=== PATIENT | female | born 1960 | race Caucasian/White ===

== ENCOUNTER 2018-05-12 08:56 | Emergency (ER) | payer OTHER ==
[~2018-05-12] VITALS: Ht 180.3 cm; Wt 93.0 kg
--- NOTE | 2018-05-12 09:45 | ED SKIN/ALLERGY COMPLAINT ---
History of Present Illness General Chief Complaint: Skin Rash/ Abcess Stated Complaint: SENT IN BY PMD FOR EVAL OF INFECTION Source: patient Exam Limitations: no limitations Vital Signs & Intake/Output Vital Signs & Intake/Output Vital Signs Date Time Temp Pulse Resp B/P B/P Pulse O2 O2 Flow FiO2 Mean Ox Delivery Rate 05/12 0901 98.6 85 18 115/77 98 Room Air Allergies Coded Allergies: NO KNOWN ALLERGIES (02/07/16) Reconcile Medications Amoxicillin/Potassium Clav (Augmentin 875-125 Tablet) 875 MG-125 MG TABLET 1 TAB PO BID SKIN INFECTION Paroxetine HCl 30 MG TABLET 1 TAB PO DAILY MENTAL HEALTH (Reported) Pravastatin Sodium 20 MG TABLET 1 TAB PO DAILY CHOLESTEROL (Reported) Sulfamethoxazole/Trimethoprim (Sulfamethoxazole-Tmp Ds Tablet) 800 MG-160 MG TABLET 1 TAB PO BID ANTIBIOTIC, INFECTION (Reported) Triage Note: 57 YO FEMALE SENT TO ER BY FOR EVAL OF ? CELLULITIS ON L SIDE OF ABDOMEN. STATES HAS BEEN TAKING BACTRIM BUT AREA IS GETTING WORSE. STATES SITE IS PAINFUL. Triage Nurses Notes Reviewed? yes Onset: Gradual Duration: day(s):, constant, changing over time, continues in ED, getting worse Timing: single episode today Severity: severe Location: left hip/flank HPI: Patient presents for evaluation of a red rash that began gradually about or Friday of last week. Patient states it is a constant itchy red rash that seems to be getting worse. Patient states that she was seen in a walk-in clinic on Friday and began treatment with Bactrim. She then followed up with her primary care physician today who sent her to the emergency department for treatment. Other than fatigue she denies any associated fever or cold symptoms or known injury. She likewise denies tick bites or insect envenomation. Past History Travel History Traveled to [place] past 21 day No Medical History Any Pertinent Medical History? 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 No Review of Systems Review of Systems Constitutional: Reports: no symptoms. EENTM: Reports: no symptoms. Respiratory: Reports: no symptoms. Cardiovascular: Reports: no symptoms. GI: Reports: no symptoms. Genitourinary: Reports: no symptoms. Musculoskeletal: Reports: no symptoms. Skin: Reports: see HPI. Neurological/Psychological: Reports: no symptoms. Hematologic/Endocrine: Reports: no symptoms. Immunologic/Allergic: Reports: no symptoms. All Other Systems: Reviewed and Negative Physical Exam Physical Exam General Appearance: see below Comments: Gen.: Well-nourished, well-developed, no acute respiratory distress. Head: Normocephalic, atraumatic. Eyes: Normal inspection bilaterally Ears: Normal inspection bilaterally Nose: Normal inspection Throat/mouth : Moist mucosa Neck: Supple, full range of motion, no goiter Lungs: Quiet respirations Back: Normal range of motion Extremities: Normal range of motion grossly, no cyanosis clubbing or edema of the upper extremities Neurologic: Cranial nerves grossly intact, speech is clear Skin: warm and dry, area of erythema and mild induration and violaceous discoloration over the left hip and flank, there is a purple outline present likely due to her physician marking the area for assessment of worsening. Psychiatric: Calm, cooperative, no apparent delusions or hallucinations Diagram Body: 1) AREA OF RASH/INFECTION Progress Differential Diagnosis: abscess/cellulitis, allergic reaction, contact dermatitis, shingles, urticaria, lYME DISEASE Plan of Care: Orders Procedure Date/time Status LYME TITRE 05/12 943 Active CBC WITHOUT DIFFERENTIAL 05/12 943 Complete BASIC METABOLIC PANEL 05/12 943 Complete Laboratory Tests 05/12/18 1000: Anion Gap 12, Estimated GFR 46 L, BUN/Creatinine Ratio 11.7, Glucose 102 H, Calcium 9.0, CBC w Diff NO MAN DIFF REQ, RBC 4.58, MCV 87.8, MCH 29.2, MCHC 33.2 , RDW 13.7, MPV 8.0, Gran % 64.2, Lymphocytes % 23.4, Monocytes % 10.9 H, Eosinophils % 0.9, Basophils % 0.6, Absolute Granulocytes 6.3, Absolute Lymphocytes 2.3, Absolute Monocytes 1.1 H, Absolute Eosinophils 0.1, Absolute Basophils 0.1, Lyme Disease Antibody Pending Comments: 05/12/2018 11:33:45 AM I have discussed this patient's emergency department visit with her primary care physician Dr. Corea. She is satisfied with the emergency department evaluation and agrees with enhancement of the patient's antibiotic coverage. She will reevaluate Mitzy in 48 hours. Departure Departure Disposition: HOME OR SELF CARE Condition: Stable Clinical Impression Primary Impression: Cellulitis Qualifiers: Site of cellulitis: trunk Site of cellulitis of trunk: back Qualified Code: L03.312 - Cellulitis of back [any part except buttock] Referrals: Anna IRENE,Henrry Salas (PCP/Family) Additional Instructions: Continue the Bactrim as previously prescribed and add Augmentin. Over-the- counter pain medication as needed. Follow-up with your primary care doctor in 48 hours. Return if any concerns or sudden worsening. Thank you for choosing the [facility] Emergency Department for your care. It was a pleasure to serve you today. Markel Bowie M.D. [facility] Departure Forms: Customer Survey General Discharge Information Prescriptions: Current Visit Scripts Amoxicillin/Potassium Clav (Augmentin 875-125 Tablet) 1 TAB PO BID #20 TAB
[2018-05-12] MEDS ORDERED: PRAVASTATIN SOD20 M2 PO (10:12)
[2018-05-12] MEDS ORDERED: SULFAMETHOXAZO1 EAC1 PO (10:13)
[2018-05-12] MEDS ORDERED: PAROXETINE HCL30 M1 PO (10:13)
[2018-05-12 10:23] LABS: ABSOLUTE BASOPHIL COUNT 0.1 /CUMM (0.0-0.2); ABSOLUTE EOSINOPHIL COUNT 0.1 /CUMM (0.0-0.7); ABSOLUTE GRANULOCYTE CT 6.3 /CUMM (1.4-6.5); ABSOLUTE LYMPH COUNT 2.3 /CUMM (1.2-3.4); ABSOLUTE MONOCYTE COUNT 1.1 /CUMM (0.10-0.60); BASOPHIL % 0.6 % (0.0-2.0); EOSINOPHIL % 0.9 % (0-5); GRANULOCYTE % 64.2 % (42.2-75.2); HEMATOCRIT 40.2 % (37-47); MEAN CORPUSCULAR HGB 29.2 PG (27.0-31.0); MEAN CORPUSCULAR HGB CONC 33.2 G/DL (33.0-37.0); MEAN CORPUSCULAR VOLUME 87.8 FL (81.0-99.0); PLATELET COUNT 278 /CUMM (130-400); RBC DISTRIBUTION WIDTH 13.7 % (11.5-14.5); RED BLOOD CELL CT 4.58 /CUMM (4.20-5.40); WHITE BLOOD CELL COUNT 9.9 /CUMM (4.8-10.8)
[2018-05-12] MEDS ORDERED: AUGMENTIN 875-1 EACH PO (11:48)
[2018-05-12 11:49] VITALS: BP 133/78
== END 2018-05-12 11:58 ==
LOC: ERH 08:56
PROVIDERS: Emergency Medicine
DX: L03.311 Cellulitis of abdominal wall (principal)
CPT/HCPCS: 86618; 96365

== ENCOUNTER 2018-05-12 18:01 | Inpatient (IN) | payer OTHER ==
[~2018-05-12] VITALS: Ht 180.3 cm; Wt 92.3 kg
[~2018-05-12 18:01] MED LIST: AUGMENTIN 875-1 EACH PO; PAROXETINE HCL30 M1 PO; PRAVASTATIN SOD20 M2 PO; SULFAMETHOXAZO1 EAC1 PO
--- NOTE | 2018-05-12 18:37 | ED SKIN/ALLERGY COMPLAINT ---
History of Present Illness General Chief Complaint: General Adult Stated Complaint: SEEN HERE THIS AM FOR CELLULITIS Source: patient, old records Exam Limitations: no limitations Vital Signs & Intake/Output Vital Signs & Intake/Output Vital Signs Date Time Temp Pulse Resp B/P B/P Pulse O2 O2 Flow FiO2 Mean Ox Delivery Rate 05/12 1959 100.8 05/12 1911 100.8 78 18 102/56 96 Room Air 05/12 1856 102.0 05/12 1845 97 Room Air 05/12 1813 102.8 87 18 108/71 96 Room Air Allergies Coded Allergies: NO KNOWN ALLERGIES (02/07/16) Reconcile Medications Amoxicillin/Potassium Clav (Augmentin 875-125 Tablet) 875 MG-125 MG TABLET 1 TAB PO BID SKIN INFECTION Paroxetine HCl 30 MG TABLET 1 TAB PO DAILY MENTAL HEALTH (Reported) Pravastatin Sodium 20 MG TABLET 1 TAB PO DAILY CHOLESTEROL (Reported) Sulfamethoxazole/Trimethoprim (Sulfamethoxazole-Tmp Ds Tablet) 800 MG-160 MG TABLET 1 TAB PO BID ANTIBIOTIC, INFECTION (Reported) Triage Note: PT STATES SHE WAS HERE THIS AM AND SEEN FOR CELLULITIS ON HER LEFT SIDE. PT WAS TOLD TO COME BACK IF WORSE. PT STATES SHE IS VOMITING NOW AND HAS FEVER AND VOMITING. Triage Nurses Notes Reviewed? yes HPI: Patient presents for evaluation of a constant and worsening left flank rash that began a number of days ago. The rash persists despite taking Bactrim over the past 2 days. Patient was seen earlier in the [facility] emergency Department and was given a dose of Unasyn and provided a prescription for Augmentin to take along with the Bactrim. While at home the patient states she began to feel considerably worse and spiked a fever with chills. She returns for reevaluation. (Azeb IRENE,Markel Skinner) Past History Travel History Traveled to [place] past 21 day No Medical History Any Pertinent Medical History? 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 No (Azeb IRENE,Markel Skinner) Review of Systems Review of Systems Constitutional: Reports: chills. EENTM: Reports: no symptoms. Respiratory: Reports: no symptoms. Cardiovascular: Reports: no symptoms. GI: Reports: no symptoms. Genitourinary: Reports: no symptoms. Musculoskeletal: Reports: no symptoms. Skin: Reports: see HPI. Neurological/Psychological: Reports: no symptoms. Hematologic/Endocrine: Reports: no symptoms. Immunologic/Allergic: Reports: no symptoms. All Other Systems: Reviewed and Negative (Azeb IRENE,Markel Skinner) Physical Exam Physical Exam General Appearance: SEE BELOW Comments: Gen.: Well-nourished, well-developed, no acute respiratory distress. Head: Normocephalic, atraumatic. Eyes: Normal inspection bilaterally Ears: Normal inspection bilaterally Nose: Normal inspection Throat/mouth : Moist mucosa Neck: Supple, full range of motion, no goiter Lungs: Quiet respirations Back: Normal range of motion Extremities: Normal range of motion grossly, no cyanosis clubbing or edema of the upper extremities Neurologic: Cranial nerves grossly intact, speech is clear Skin: warm and dry, papular rash over the left flank with mild induration and tenderness, no fluctuance present. Psychiatric: Calm, cooperative, no apparent delusions or hallucinations (Azeb IRENE,Markel Skinner) Progress Differential Diagnosis: abscess/cellulitis, lyme disease Plan of Care: Orders Procedure Date/time Status Heart Healthy Diet 05/13 B Active LACTIC ACID 05/12 2112 Active ED Holding Orders 05/12 1954 Active Admit to inpatient 05/12 1954 Active Vital Signs 05/12 1954 Active Code Status 05/12 1954 Active TROPONIN LEVEL 05/12 1813 Complete COMPREHENSIVE METABOLIC PANEL 05/12 1813 Complete EKG 05/12 1813 Active BLOOD CULTURE 05/12 1812 Active LACTIC ACID 05/12 1812 Complete CBC WITHOUT DIFFERENTIAL 05/12 1812 Complete Current Medications Sig/Job Start time Last Medication Dose Stop Time Status Admin Sodium Chloride 1,000 ML BOLUS ONE 05/12 1845 AC 05/12 (Normal Saline 0.9%) 05/12 Trimethoprim/ 10 ML ONCE ONE 05/12 1845 CAN Sulfamethoxazole 05/12 1846 (Bactrim) Trimethoprim/ 10 ML ONCE ONE 05/12 1845 AC 05/12 Sulfamethoxazole 05/12 (Bactrim) Sodium Chloride 250 ML (Normal Saline 0.9%) Laboratory Tests 05/12/181830: Lactic Acid 1.0 05/12/181830: Anion Gap 11, Estimated GFR 46 L, BUN/Creatinine Ratio 12.5, Glucose 108 H, Calcium 8.8, Total Bilirubin 0.9, AST 20, ALT 39, Alkaline Phosphatase 69, Troponin I < 0.01, Total Protein 7.0, Albumin 3.8, Globulin 3.2, Albumin/ Globulin Ratio 1.2, CBC w Diff NO MAN DIFF REQ, RBC 4.34, MCV 87.9, MCH 29.6, MCHC 33.7, RDW 13.7, MPV 7.9, Gran % 62.3, Lymphocytes % 23.5, Monocytes % 12.2 H, Eosinophils % 1.1, Basophils % 0.9, Absolute Granulocytes 5.5, Absolute Lymphocytes 2.1, Absolute Monocytes 1.1 H, Absolute Eosinophils 0.1, Absolute Basophils 0.1 Microbiology 05/12 1840 BLOOD: Blood Culture - RECD 05/12 1831 BLOOD: Blood Culture - RECD Comments: 05/12/2018 7:10:59 PM patient 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 (Azeb IRENE,Markel Skinner) Departure Departure Disposition: STILL A PATIENT Condition: Stable Clinical Impression Primary Impression: Cellulitis Referrals: Anna IRENE,Henrry Salas (PCP/Family) Departure Forms: Customer Survey General Discharge Information (Azeb IRENE,Markel Skinner) Admission Note Spoke With: Jolene Sarabia MD Documentation of Exam: Documentation of any treatments & extenuating circumstances including Concerns Regarding Discharge (functional status, medication knowledge or non-compliance, living conditions, etc.) that warrant an admission rather than observation: [ Admit for IV antibiotics, IV fluids, follow-up cultures. Patient has been on Bactrim for the past 2 days and then received a dose of Unasyn earlier today in the emergency Department however she still spiked a fever to 102.8.] (Chandrika IRENE,Stefan Youngblood)
[2018-05-12 18:43] LABS: ABSOLUTE BASOPHIL COUNT 0.1 /CUMM (0.0-0.2); ABSOLUTE EOSINOPHIL COUNT 0.1 /CUMM (0.0-0.7); ABSOLUTE GRANULOCYTE CT 5.5 /CUMM (1.4-6.5); ABSOLUTE LYMPH COUNT 2.1 /CUMM (1.2-3.4); ABSOLUTE MONOCYTE COUNT 1.1 /CUMM (0.10-0.60); BASOPHIL % 0.9 % (0.0-2.0); EOSINOPHIL % 1.1 % (0-5); GRANULOCYTE % 62.3 % (42.2-75.2); HEMATOCRIT 38.2 % (37-47); MEAN CORPUSCULAR HGB 29.6 PG (27.0-31.0); MEAN CORPUSCULAR HGB CONC 33.7 G/DL (33.0-37.0); MEAN CORPUSCULAR VOLUME 87.9 FL (81.0-99.0); MEAN PLATELET VOLUME 7.9 FL (7.4-10.4); PLATELET COUNT 263 /CUMM (130-400); RBC DISTRIBUTION WIDTH 13.7 % (11.5-14.5); RED BLOOD CELL CT 4.34 /CUMM (4.20-5.40); WHITE BLOOD CELL COUNT 8.9 /CUMM (4.8-10.8)
--- NOTE | 2018-05-12 20:15 | History & Physical ---
Stefan Terrell MD 05/12/18 2015: General Information and HPI MD Statement: I have seen and personally examined DINORAH ROSADO and documented this H& P. The patient is a 57 year old F who presented with a patient stated chief complaint of [fever, chills]. Source of Information: patient, family Exam Limitations: no limitations History of Present Illness: Patient is a 57-year-old female with a PMH significant for hyperlipidemia, anxiety, diet-controlled diabetes mellitus type 2, EL on nocturnal CPAP although admits to noncompliance, who presents complaining of a rash on her left flank, fever, chills. Approximately 4-5 days prior to presentation patient reported onset of erythematous patch on her left flank which started a relatively small through over several days and became tender and warm to the touch. She presented to urgent care 2 days prior to admission and was started on Bactrim. She then went to the ED the morning prior to admission she was given 1 dose of IV Unasyn and Augmentin was added to her antibiotic regimen and she was sent home. She then returned to the ED after she was having severe fever and chills. She endorses fatigue and nausea but no vomiting over the last several days but denies any weakness or muscle aches. She has been compliant with her antibiotics for the past 2 days. She does not recall any insect bite at the site of the rash and has been spending time outside in her garden but not in any wooded areas. She denies any chest pain, shortness of breath, palpitations. Allergies/Medications Allergies: Coded Allergies: NO KNOWN ALLERGIES (02/07/16) Home Med list Amoxicillin/Potassium Clav (Augmentin 875-125 Tablet) 875 MG-125 MG TABLET 1 TAB PO BID SKIN INFECTION Paroxetine HCl 30 MG TABLET 1 TAB PO DAILY MENTAL HEALTH (Reported) Pravastatin Sodium 20 MG TABLET 1 TAB PO DAILY CHOLESTEROL (Reported) Sulfamethoxazole/Trimethoprim (Sulfamethoxazole-Tmp Ds Tablet) 800 MG-160 MG TABLET 1 TAB PO BID ANTIBIOTIC, INFECTION (Reported) Past History Travel History Traveled to [place] past 21 day No Medical History Neurological: NONE EENT: NONE Cardiovascular: hyperlipidemia, syncope Respiratory: NONE Gastrointestinal: NONE Hepatic: NONE Renal: NONE Musculoskeletal: NONE Psychiatric: ANXITEY PANIC ATTACKS Endocrine: DM Blood Disorders: NONE 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 MOTHER FH: atrial fibrillation, Onset: 60+. Psychosocial History Where do you live? Home Primary Language: Polish Smoking Status: Current Everyday Smoker ETOH Use: denies use Illicit Drug Use: denies illicit drug use Living Will? no Functional Ability ADLs Independent: dressing, eating, toileting, bathing. Ambulation: independent IADLs Independent: shopping, housework, finances, food prep, telephone, transportation , medication admin. Review of Systems Review of Systems Constitutional: Reports: see HPI, chills, fever. Denies: weakness. EENTM: Denies: blurred vision, double vision, visual changes. Cardiovascular: Denies: chest pain, palpitations, syncope. Respiratory: Denies: cough, hemoptysis, short of breath, sputum production. GI: Denies: abdominal pain, bloating, constipation, melena, nausea, bloody stool. Genitourinary: Denies: dysuria, frequency, nocturia. Musculoskeletal: Reports: see HPI. Skin: Reports: rash. Neurological/Psychological: Reports: no symptoms. Hematologic/Endocrine: Reports: no symptoms. Exam & Diagnostic Data Last 24 Hrs of Vital Signs/I&O Vital Signs Date Time Temp Pulse Resp B/P B/P Pulse O2 O2 Flow FiO2 Mean Ox Delivery Rate 05/120 97.6 66 17 114/64 97 Room Air 05/12 2057 98.9 82 20 106/62 95 05/12 1959 100.8 05/12 191 100.8 78 18 102/56 96 Room Air 05/12 1856 102.0 05/12 1845 97 Room Air 05/12 181 102.8 87 18 108/71 96 Room Air Physical Exam General Appearance Alert, Oriented X3, Cooperative, No Acute Distress Skin dusky erythmatous patch on the L flank with distinct boarders showing some regression from the dixon demarcating the peripheral edge in the ED, mildly tender to palpation., small hyperpigmented papules under the R breast Skin Temp/Moisture Exam: Warm/Dry Sepsis Skin Exam (color): Normal for Ethnicity, Cyanotic, Flushed, Jaundiced HEENT Atraumatic, PERRLA, EOMI, Mucous Membr. moist/pink Cardiovascular Regular Rate, Normal S1, Normal S2, No Murmurs Lungs Clear to Auscultation, Normal Air Movement Abdomen Normal Bowel Sounds, Soft, No Tenderness Neurological Normal Speech, Strength at 5/5 X4 Ext, Normal Tone, Sensation Intact, Cranial Nerves 3-12 NL Extremities No Clubbing, No Cyanosis, No Edema Last 24 Hrs of Labs/Carter: Laboratory Tests 05/12/182052: Lactic Acid 0.9 05/12/181830: Lactic Acid 1.0 05/12/181830: Anion Gap 11, Estimated GFR 46 L, BUN/Creatinine Ratio 12.5, Glucose 108 H, Calcium 8.8, Total Bilirubin 0.9, AST 20, ALT 39, Alkaline Phosphatase 69, Troponin I < 0.01, Total Protein 7.0, Albumin 3.8, Globulin 3.2, Albumin/ Globulin Ratio 1.2, CBC w Diff NO MAN DIFF REQ, RBC 4.34, MCV 87.9, MCH 29.6, MCHC 33.7, RDW 13.7, MPV 7.9, Gran % 62.3, Lymphocytes % 23.5, Monocytes % 12.2 H, Eosinophils % 1.1, Basophils % 0.9, Absolute Granulocytes 5.5, Absolute Lymphocytes 2.1, Absolute Monocytes 1.1 H, Absolute Eosinophils 0.1, Absolute Basophils 0.1 Microbiology 05/12 1840 BLOOD: Blood Culture - RECD 05/12 1831 BLOOD: Blood Culture - RECD Diagnostic Data EKG Results Sinus rhythm HR 79 QTc 432 Assessment/Plan Assessment: Patient is a 57-year-old female with a PMH significant for hyperlipidemia, anxiety, diet-controlled diabetes mellitus type 2, EL on nocturnal CPAP although admits to noncompliance, who presents complaining of a rash on her left flank, fever, chills. She was started on Bactrim 2 days prior to presentation by urgent care and failed outpatient therapy, she was seen in the ED the morning of admission and was given a dose of Unasyn Augmentin added to her regimen, however she had severe fever and chills after being sent home from the ED and return to the ED. she has no history of being outside in a wooded area but has spent a significant amount of time outside in her garden, she does not recall any tick bites. Erythematous patch on her left flank consistent with erythema migrans Vital signs on presentation: T max 102.8, P 87, RR 18, BP 108/71, pulse ox 96% on room air Labs: WBC 8.9, H/H 12.9/38.2, platelets 263, sodium 136, potassium 4.3, chloride 102, CO2 24, creatinine 1.2, glucose 108, lactic acid 1.0, troponin < 0.01, Lyme titer 1.17 Problem list #Lyme disease with erythema migrans #Chronic medical problems including anxiety, diet-controlled DM, HLD Plan -Admit to general medicine -Start doxycycline -Tick panel -Follow-up peripheral smear -Follow-up labs in a.m. -ID consult to be placed in a.m. -Continue home medications including statin, paroxetine -Smoking cessation counseling Diet: Diabetic diet DVT prophylaxis: Subcutaneous heparin, Alps CODE STATUS: Full code As Ranked By This Provider Problem List: 1. Lyme disease Core Measures/Misc (08/10) Acute Coronary Syndrome ACS Diagnosis: No Congestive Heart Failure Congestive Heart Failure Diagnosis No Cerebrovascular Accident CVA/TIA Diagnosis: No VTE (View Protocol) VTE Risk Factors Age>40 No Mechanical VTE Prophylaxis d/t N/A MechProphylax Ordered No VTE Pharm Prophylaxis d/t NA PharmProphylax ordered Sepsis (View protocol) Sepsis Present: No If YES complete Sepsis Event Note If YES complete Sepsis Event Note Jyoti Graves 05/12/18 4277: Core Measures/Misc (08/10) Sepsis (View protocol) If YES complete Sepsis Event Note If YES complete Sepsis Event Note Resident Review Statement Resident Statement: examined this patient, discussed with internet manager, agreed with internet manager Other Findings: 57 year old woman current smoker, with pmh significant for Impaired glucose intolerance, anxiety, hyperlipidemia here for evaluation of erthyematous rash of 4-5 days duration. She went to urgent care 2 days prior to admission and was started on Bactrim with no improvement in symptoms. Endorsed severe weakness and myalagia. Also endorsed recent difficultly with swallowing. Family has noticed that she sometimes chokes when eating. Denied recent tick bites however did work in garden recently. In ED she was found to febrile to 102.8, Examination pertinent for erthymatous, sharply demarcated patch on left flank and expiratory wheeze on lung exam. EKG: sinus rhythm, nonspecific T-wave changes, Qtc 432. assessement plan: Meets criteria for SIRS, will admit to general medicine early localized lyme VS cellulitis Rash consistent with Erythema migrans seen in early localized lyme Received IV Unasyn and IV Bactrim in the ER to cover for cellulitis Lyme antibody titer is positive (1.17), will Start doxycycline Follow-up tick panel and PS ID consult to be placed in a.m. Continue home medications including statin, paroxetine TRC/nebs, nocturnal CPAP follow up swallow eval. Diet: Diabetic diet DVT prophylaxis: Subcutaneous heparin, Alps CODE STATUS: Full code Cornell IRENE, [facility] 05/13/18 0220: Core Measures/Misc (08/10) Sepsis (View protocol) If YES complete Sepsis Event Note If YES complete Sepsis Event Note Attending MD Review Statement Attending Statement Attending MD Statement: examined this patient, discuss w/resident/PA/FIXTURE MAKER, agreed w/resident/PA/FIXTURE MAKER, discussed with family, reviewed images, amended to note Attending Assessment/Plan: 57 yo F smoker, with h/o restless leg syndrome, anxiety, HLD, diet-controlled diabetes, CKD stage 3, EL noncompliant with CPAP, is here for evaluation of erythematous rash to her left abdomen. About 6 days ago, patient reports developing what she thought was a 'heat rash' associated with tenderness/ pain. She went to an Urgent Care and was started on Bactrim 3 days ago which she has been compliant with. She came to the ER early this morning, was given a dose of IV Unasyn and then discharged on Augmentin to be taken with the Bactrim. However , when she reached home, she had a fever of 102 and hence she returned to the ER. She reports chills, fatigue and feeling of generalized weakness/ tiredness. Patient reports doing garden work but does not recall any tick or insect bites. Vitals: Tmax 102.8, HR 66-82, BP 114/64, sats 97% RA. Exam: AAO, in no distress, left flank region diffuse uniform erythematous rash, blanchable, warm to touch. Labs: Creat 1.2 (baseline 1.0-1.1), lactic acid normal, trop neg. EKG: sinus rhythm, nonspecific T-wave changes, Qtc 432. Patient received IV Unasyn and IV Bactrim in the ER to cover for cellulitis. Assessment and plan: 1. SIRS 2. Diffuse uniform erythematous rash concerning for erythema migrans, Lyme disease 3. Possibly overlying cellulitis 4. History of diet controlled diabetes 5. CKD stable - Admit to General medicine - Panculture - Assess for tick borne illnesses - Peripheral smear - Lyme antibody titer is positive (1.17) - Initiate IV Doxycycline - Obtain ID consult in AM - Please check CK, CRP - Gentle hydration - Tylenol as needed for fever - Smoking cessation counseling, nicotine patch - Resume home meds DVT ppx Hep SC. Full code.
[2018-05-12 22:00] VITALS: BP 114/64
--- NOTE | 2018-05-13 03:23 | Admission Certification ---
Admission Certification Certification Statement - As attending physician, I certify that at the time of - admission, based on clinical presentation, severity of - symptoms, need for further diagnostic testing and - therapeutic interventions, and risk of adverse outcomes - without in-hospital treatment, in my clinical assessment, - this patient requires an acute hospital stay for a minimum - of two nights or longer. I have also considered psychsocial - factors such as support system, advanced age, financial - issues, cognitive issues, and failed out-patient treatments, - past re-admission history, safety of patient, and lack of - compliance as applicable. Specific rationale supporting this admission is: Left flank rash ?erythema migrans vs cellulitis, failed outpatient treatment.
[2018-05-13 06:17] VITALS: BP 122/74
--- NOTE | 2018-05-13 07:13 | PN- Housestaff ---
Subjective Follow-up For: Rash on left flank region Subjective: Patient reports fatigue. Says she noticed the rash on friday and has been increasing in size since then despite taking the Abx. Also the area was more induarated before now has been more softer now. Review of Systems Constitutional: Reports: fever, malaise. EENTM: Reports: no symptoms. Cardiovascular: Reports: no symptoms. Respiratory: Reports: no symptoms. Gastrointestinal: Reports: no symptoms. Genitourinary: Reports: no symptoms. Musculoskeletal: Reports: no symptoms. Skin: Reports: rash. Neurological/Psychological: Reports: no symptoms. Hematologic/Endocrine: Reports: no symptoms. Immunologic/Allergic: Reports: no symptoms. Objective Last 24 Hrs of Vital Signs/I&O Vital Signs Date Time Temp Pulse Resp B/P B/P Pulse O2 O2 Flow FiO2 Mean Ox Delivery Rate 05/13 1404 98.1 67 16 116/70 98 Room Air 05/13 1034 Room Air 05/13 0617 98.9 69 20 122/74 98 Room Air 05/12 2200 97.6 66 17 114/64 97 Room Air 05/127 98.9 82 20 106/62 95 05/12 1959 100.8 05/12 1911 100.8 78 18 102/56 96 Room Air 05/12 1856 102.0 05/12 1845 97 Room Air 05/12 1813 102.8 87 18 108/71 96 Room Air Intake & Output 05/13 1600 05/13 0800 05/13 0000 Intake Total 4951 186 1611 Output Total Balance 0980 138 8123 Intake, IV 0 100 1000 Intake, Oral 1900 Number 0 Bowel Movements Patient 203 lb Weight Weight Bed scale Measurement Method Physical Exam General Appearance: Alert, Oriented X3, Cooperative, No Acute Distress Skin: No Breakdown, erythematous rash on left flank area, tender and warm to touch Cardiovascular: Regular Rate, Normal S1, Normal S2 Lungs: Clear to Auscultation, Normal Air Movement Abdomen: Normal Bowel Sounds, Soft, No Tenderness Extremities: No Clubbing, No Cyanosis, No Edema Current Medications: Current Medications Sig/Job Start time Last Medication Dose Route Stop Time Status Admin Acetaminophen 0 .STK-MED ONE 05/12 1849 DC IV Acetaminophen 1,000 MG ONCE ONE 05/12 1845 DC 05/12 N/A 1 UNIT IV 05/12 Ampicillin Sodium/ 0 .STK-MED ONE 05/12 184 DC Sulbactam Sodium .ROUTE Ampicillin Sodium/ 3,000 MG ONCE ONE 05/12 184 DC 05/12 Sulbactam Sodium IV 05/12 1914 1914 Sodium Chloride 100 ML Doxycycline Hyclate 100 MG DAILY 05/13 0245 AC 05/13 Sodium Chloride 100 ML IV 0324 Enoxaparin Sodium 40 MG DAILY 05/13 1330 AC 05/13 SC 1448 Nicotine 14 MG DAILY 05/14 0900 UNVr TOP Nicotine 7 MG DAILY 05/13 0900 DC TOP Paroxetine HCl 30 MG AT BEDTIME 05/13 2100 DC PO Paroxetine HCl 30 MG DAILY 05/13 1027 AC 05/13 PO 1210 Patient Medication 1 ED ONE ONE 05/13 1230 DC Teaching ED 05/13 1231 Pravastatin Sodium 20 MG DAILY 05/13 0900 AC 05/13 PO 0840 Sodium Chloride 1,000 ML BOLUS ONE 05/12 184 DC 05/12 IV 05/12 2044 184 Trimethoprim/ 10 ML ONCE ONE 05/12 184 CAN Sulfamethoxazole IV 05/12 184 Trimethoprim/ 10 ML ONCE ONE 05/12 184 DC 05/12 Sulfamethoxazole IV 05/12 Sodium Chloride 250 ML Last 24 Hrs of Lab/Carter Results Last 24 Hrs of Labs/Mics: Laboratory Tests 05/13/18 0700: Anion Gap 8, Estimated GFR 57 L, BUN/Creatinine Ratio 11.0, CBC w Diff MAN DIFF ORDERED, RBC 4.08 L, MCV 88.2, MCH 29.9, MCHC 33.9, RDW 13.6, MPV 9.4, Segmented Neutrophils 65, Lymphocytes 23, Monocytes 9, Eosinophils 3, Platelet Estimate , Normocytic RBCs VERIFIED, Normochromic RBCs VERIFIED 05/12/182052: Lactic Acid 0.9 05/12/181830: Lactic Acid 1.0 05/12/181830: Anion Gap 11, Estimated GFR 46 L, BUN/Creatinine Ratio 12.5, Glucose 108 H, Calcium 8.8, Total Bilirubin 0.9, AST 20, ALT 39, Alkaline Phosphatase 69, Creatine Kinase 63, Troponin I < 0.01, Total Protein 7.0, Albumin 3.8, Globulin 3.2, Albumin/Globulin Ratio 1.2, CBC w Diff NO MAN DIFF REQ, RBC 4.34, MCV 87.9, MCH 29.6, MCHC 33.7, RDW 13.7, MPV 7.9, Gran % 62.3, Lymphocytes % 23.5, Monocytes % 12.2 H, Eosinophils % 1.1, Basophils % 0.9, Absolute Granulocytes 5.5, Absolute Lymphocytes 2.1, Absolute Monocytes 1.1 H, Absolute Eosinophils 0.1, Absolute Basophils 0.1 Microbiology 05/12 1840 BLOOD: Blood Culture - RES 05/12 1831 BLOOD: Blood Culture - RES Assessment/Plan Assessment: Patient is a 57-year-old female with a PMH significant for hyperlipidemia, anxiety, diet-controlled diabetes mellitus type 2, EL on nocturnal CPAP although admits to noncompliance, who presents complaining of a rash on her left flank, fever, chills. She was started on Bactrim 2 days prior to presentation by urgent care and failed outpatient therapy, she was seen in the ED the morning of admission and was given a dose of Unasyn Augmentin added to her regimen, however she had severe fever and chills after being sent home from the ED and return to the ED. she has no history of being outside in a wooded area but has spent a significant amount of time outside in her garden, she does not recall any tick bites. Problem list #Rash on left flank region; ?? lyme disease with superimposed cellulitis #Chronic medical problems including anxiety, diet-controlled DM, HLD Plan - Admit to general medicine - Lyme Ab positive, Confirm with western blot. - Continue doxycycline - Tick panel pending - Follow-up peripheral smear - Will obtain US of the area to r/o any abscess - Follow-up labs in a.m. - ID consult to be placed if patient continues to spike fever or rash worsens. - Cr back to baseline. - Continue home medications including statin, paroxetine - Nicotine patch 14mg daily Diet: Diabetic diet DVT prophylaxis: Subcutaneous heparin, Alps CODE STATUS: Full code Problem List: 1. Cellulitis 2. Lyme disease Pain Ratin Pain Location: NA Pain Goal: Remain pain free Pain Plan: Pain Pathway Tomorrow's Labs & Rationales: None
[2018-05-13 08:06] LABS: RED BLOOD CELL CT 4.08 /CUMM (4.20-5.40)
[2018-05-13 08:14] LABS: MEAN CORPUSCULAR HGB 29.9 PG (27.0-31.0); MEAN CORPUSCULAR HGB CONC 33.9 G/DL (33.0-37.0); MEAN CORPUSCULAR VOLUME 88.2 FL (81.0-99.0); MEAN PLATELET VOLUME 9.4 FL (7.4-10.4); PLATELET COUNT 175 /CUMM (130-400); RBC DISTRIBUTION WIDTH 13.6 % (11.5-14.5); WHITE BLOOD CELL COUNT 9.1 /CUMM (4.8-10.8)
--- NOTE | 2018-05-13 13:17 | PN- Att Addend ---
Attending Addendum Attending Brief Note Patient seen and examined, currently afebrile. The rash looks the same. Patient does not have any leukocytosis. She is admitted with cellulitis failing outpatient treatment. Vital Signs Date Time Temp Pulse Resp B/P B/P Pulse O2 O2 Flow FiO2 Mean Ox Delivery Rate 05/13 1034 Room Air 05/13 617 98.9 69 20 122/74 98 Room Air 05/12 2200 97.6 66 17 114/64 97 Room Air 05/12 2057 98.9 82 20 106/62 95 05/12 1959 100.8 05/12 191 100.8 78 18 102/56 96 Room Air 05/12 1856 102.0 05/12 1845 97 Room Air 05/12 181 102.8 87 18 108/71 96 Room Air on exam; aox3, nad. cv; s1, s2, rrr resp; clear abd; soft, nt, bs+ ext; no edema skin: Large area of erythema and induration on the left flank/buttock area. Laboratory Tests 05/13 05/12 05/12 0700 2052 183 Chemistry Sodium (137 - 145 mmol/L) 139 Potassium (3.5 - 5.1 mmol/L) 4.3 Chloride (98 - 107 mmol/L) 108 H Carbon Dioxide (22 - 30 mmol/L) 23 Anion Gap (5 - 16) 8 BUN (7 - 17 mg/dL) 11 Creatinine (0.5 - 1.0 mg/dL) 1.0 Estimated GFR (>60 ml/min) 57 L BUN/Creatinine Ratio (7 - 25 %) 11.0 Lactic Acid (0.7 - 2.1 mmol/L) 0.9 1.0 Hematology CBC w Diff MAN DIFF ORDERED WBC (4.8 - 10.8 /CUMM) 9.1 RBC (4.20 - 5.40 /CUMM) 4.08 L Hgb (12.0 - 16.0 G/DL) 12.2 Hct (37 - 47 %) 36.0 L MCV (81.0 - 99.0 FL) 88.2 MCH (27.0 - 31.0 PG) 29.9 MCHC (33.0 - 37.0 G/DL) 33.9 RDW (11.5 - 14.5 %) 13.6 Plt Count (130 - 400 /CUMM) 175 MPV (7.4 - 10.4 FL) 9.4 Segmented Neutrophils (42.2 - 75.2 %) 65 Lymphocytes (20.5 - 51.1 %) 23 Monocytes (1.7 - 9.3 %) 9 Eosinophils (0 - 5.0 %) 3 Platelet Estimate (ADEQUATE) Normocytic RBCs VERIFIED Normochromic RBCs VERIFIED 05/12 1831 Chemistry Sodium (137 - 145 mmol/L) 136 L Potassium (3.5 - 5.1 mmol/L) 4.3 Chloride (98 - 107 mmol/L) 102 Carbon Dioxide (22 - 30 mmol/L) 24 Anion Gap (5 - 16) 11 BUN (7 - 17 mg/dL) 15 Creatinine (0.5 - 1.0 mg/dL) 1.2 H Estimated GFR (>60 ml/min) 46 L BUN/Creatinine Ratio (7 - 25 %) 12.5 Glucose (65 - 99 mg/dL) 108 H Calcium (8.4 - 10.2 mg/dL) 8.8 Total Bilirubin (0.2 - 1.3 mg/dL) 0.9 AST (14 - 36 U/L) 20 ALT (9 - 52 U/L) 39 Alkaline Phosphatase (<127 U/L) 69 Creatine Kinase (30 - 135 U/L) 63 Troponin I (< 0.11 ng/ml) < 0.01 Total Protein (6.3 - 8.2 g/dL) 7.0 Albumin (3.5 - 5.0 g/dL) 3.8 Globulin (1.9 - 4.2 gm/dL) 3.2 Albumin/Globulin Ratio (1.1 - 2.2 %) 1.2 Hematology CBC w Diff NO MAN DIFF REQ WBC (4.8 - 10.8 /CUMM) 8.9 RBC (4.20 - 5.40 /CUMM) 4.34 Hgb (12.0 - 16.0 G/DL) 12.9 Hct (37 - 47 %) 38.2 MCV (81.0 - 99.0 FL) 87.9 MCH (27.0 - 31.0 PG) 29.6 MCHC (33.0 - 37.0 G/DL) 33.7 RDW (11.5 - 14.5 %) 13.7 Plt Count (130 - 400 /CUMM) 263 MPV (7.4 - 10.4 FL) 7.9 Gran % (42.2 - 75.2 %) 62.3 Lymphocytes % (20.5 - 51.1 %) 23.5 Monocytes % (1.7 - 9.3 %) 12.2 H Eosinophils % (0 - 5 %) 1.1 Basophils % (0.0 - 2.0 %) 0.9 Absolute Granulocytes (1.4 - 6.5 /CUMM) 5.5 Absolute Lymphocytes (1.2 - 3.4 /CUMM) 2.1 Absolute Monocytes (0.10 - 0.60 /CUMM) 1.1 H Absolute Eosinophils (0.0 - 0.7 /CUMM) 0.1 Absolute Basophils (0.0 - 0.2 /CUMM) 0.1 A/P; 57-year-old female with past medical history significant for anxiety, hyperlipidemia, diet-controlled diabetes, EL who is admitted with cellulitis failing outpatient treatment. There was a question of possible Lyme with a rash of erythema migraines. This particular rash does not seem like to be erythema migraines. On blood work patient does not have any leukopenia. She was febrile to 102F last night but currently afebrile. She was started on IV doxycycline. Lyme antibody is positive. We'll do the Western blot. Doubt that this is Lyme. This likely is a cellulitis failed outpatient treatment. Will obtain ultrasound of that area to rule out any abscess. We'll continue the current antibiotics and follow-up on cultures. If patient becomes febrile or clinically gets worse and would consider getting ID consultation. Please add Accu-Cheks. Please add pharmacologic DVT prophylaxis. Discussed with her sister at bedside.
[2018-05-13 14:04] VITALS: BP 116/70
--- NOTE | 2018-05-13 18:56 | ULTRASOUND REPORT ---
EXAMINATION: US SUPERFICIAL IMAGING, EXTREMITY CLINICAL INFORMATION: Rash/cellulitis of left upper thigh and flank region. Evaluate for abscess. COMPARISON: None TECHNIQUE: Sonographic imaging of subcutaneous tissues was performed along the left lateral flank and left hip region using 9 MHz and 12 MHz linear transducers. Also, images were acquired using the curved 5 MHz transducer. FINDINGS: The superficial soft tissues in the area of concern have a normal sonographic appearance. No soft tissue abscess or mass. IMPRESSION: No evidence of soft tissue abscess in the area of clinical concern.
[2018-05-13 22:38] VITALS: BP 115/64
[2018-05-14 06:14] VITALS: BP 116/80
--- NOTE | 2018-05-14 07:28 | PN- Housestaff ---
Subjective Follow-up For: Rash Subjective: Patient reports itching at the site of the rash. Deneis any fever/chills. No overnight events. Review of Systems Constitutional: Reports: no symptoms. EENTM: Reports: no symptoms. Cardiovascular: Reports: no symptoms. Respiratory: Reports: no symptoms. Gastrointestinal: Reports: no symptoms. Genitourinary: Reports: no symptoms. Musculoskeletal: Reports: no symptoms. Skin: Reports: rash. Neurological/Psychological: Reports: no symptoms. Hematologic/Endocrine: Reports: no symptoms. Immunologic/Allergic: Reports: no symptoms. Objective Last 24 Hrs of Vital Signs/I&O Vital Signs Date Time Temp Pulse Resp B/P B/P Pulse O2 O2 Flow FiO2 Mean Ox Delivery Rate 05/14 1334 97.9 65 20 120/70 97 Room Air 05/14 0614 98.3 62 18 116/80 96 Room Air 05/13 2238 98.6 62 20 115/64 100 Room Air Intake & Output 05/14 1600 05/14 0800 05/14 0000 Intake Total 200 200 Output Total Balance 200 200 Intake, Oral 200 200 Physical Exam General Appearance: Alert, Oriented X3, Cooperative, No Acute Distress Skin: No Breakdown, Rash on left flank region, receding the marker lines Cardiovascular: Regular Rate, Normal S1, Normal S2 Lungs: Clear to Auscultation, Normal Air Movement Abdomen: Normal Bowel Sounds, Soft, No Tenderness Extremities: No Clubbing, No Cyanosis, No Edema Current Medications: Current Medications Sig/Job Start time Last Medication Dose Route Stop Time Status Admin Doxycycline Hyclate 100 MG BID 05/14 2100 UNVr Sodium Chloride 100 ML IV Doxycycline Hyclate 100 MG DAILY 05/13 0245 DC 05/14 Sodium Chloride 100 ML IV 0857 Enoxaparin Sodium 40 MG DAILY 05/13 1330 AC 05/13 SC 1448 Nicotine 14 MG DAILY 05/14 0900 AC TOP Paroxetine HCl 30 MG DAILY 05/13 1027 AC 05/14 PO 0859 Pravastatin Sodium 20 MG DAILY 05/13 0900 AC 05/14 PO 0859 Assessment/Plan Assessment: Patient is a 57-year-old female with a PMH significant for hyperlipidemia, anxiety, diet-controlled diabetes mellitus type 2, EL on nocturnal CPAP although admits to noncompliance, who presents complaining of a rash on her left flank, fever, chills. She was started on Bactrim 2 days prior to presentation by urgent care and failed outpatient therapy, she was seen in the ED the morning of admission and was given a dose of Unasyn Augmentin added to her regimen, however she had severe fever and chills after being sent home from the ED and return to the ED. she has no history of being outside in a wooded area but has spent a significant amount of time outside in her garden, she does not recall any tick bites. Problem list #Rash on left flank region; ?? lyme disease with superimposed cellulitis #Chronic medical problems including anxiety, diet-controlled DM, HLD Plan - Lyme Ab positive, western blot pending. - Continue doxycycline - Tick panel pending - Follow-up peripheral smear - USnegative for any abscess - Follow-up labs in a.m. - ID consult to be placed if patient continues to spike fever or rash worsens. - Cr back to baseline. - Continue home medications including statin, paroxetine - Nicotine patch 14mg daily Diet: Diabetic diet DVT prophylaxis: Subcutaneous heparin, Alps CODE STATUS: Full code Problem List: 1. Cellulitis 2. Lyme disease Pain Ratin Pain Location: NA Pain Goal: Remain pain free Pain Plan: Pain Pathway Tomorrow's Labs & Rationales: None
--- NOTE | 2018-05-14 12:03 | PN- Att Addend ---
Attending Addendum Attending Brief Note Patient seen and examined, remains afebrile. The area of cellulitis is less erythematous today. Vital Signs Date Time Temp Pulse Resp B/P B/P Pulse O2 O2 Flow FiO2 Mean Ox Delivery Rate 05/14 0614 98.3 62 18 116/80 96 Room Air 05/13 2238 98.6 62 20 115/64 100 Room Air 05/13 1404 98.1 67 16 116/70 98 Room Air On exam; aox3, nad. cv; s1, s2, rrr resp; clear abd; soft, nt, bs+ ext; no edema skin: The area of erythema and induration on the left flank/buttock area is improving with improved erythema. No labs. A/P; 57-year-old female with past medical history significant for anxiety, hyperlipidemia, diet-controlled diabetes, EL who is admitted with cellulitis failing outpatient treatment. There was a question of possible Lyme with a rash of erythema migraines. Less likely that this is erythema migraines underlying. Lyme antibody positive but the Western blot and the tickborne panel is pending. Patient remains afebrile. Clinically she is improving. We'll keep her on IV doxycycline for now and wait for the studies to come back and wait for further clinical improvement. DVt px; Lovenox. If continues to improves, possible discharge home tomorrow.
[2018-05-14 13:34] VITALS: BP 120/70
[2018-05-14] MEDS ORDERED: DOXYCYCLINE HY100 M4 PO (15:37)
--- NOTE | 2018-05-14 15:40 | Patient Discharge Instructions ---
Discharge Instructions General Discharge Information You were seen/treated for: Rash Watch for these problems: Please return to the ER in case of any fever/chills or worsening/recurrent rash. Special Instructions: Please follow up with your PCP within a week after discharge. Diet Continue normal diet: Yes Activity Full Activity/No Limits: Yes Acute Coronary Syndrome Inclusion Criteria At DC or during hospital stay patient has or had the following: ACS DIAGNOSIS No Discharge Core Measures Meds if any: Prescribed or Continued at Discharge Meds if any: NOT Prescribed or Continued at Discharge Congestive Heart Failure Inclusion Criteria At DC or during hospital stay patient has or had the following: CHF DIAGNOSIS No Discharge Core Measures Meds if any: Prescribed or Continued at Discharge Meds if any: NOT Prescribed or Continued at Discharge Cerebrovascular accident Inclusion Criteria At DC or during hospital stay patient has or had the following: CVA/TIA Diagnosis No Discharge Core Measures Meds if any: Prescribed or Continued at Discharge Meds if any: NOT Prescribed or Continued at Discharge Venous thromboembolism Inclusion Criteria VTE Diagnosis No VTE Type NONE VTE Confirmed by (Test) NONE Discharge Core Measures - Per Current guidelines, there needs to be overlap - treatment for the first 5 days of Warfarin therapy. - If discharged on Warfarin prior to 5 days of - overlap therapy, the patient will need to be - assessed for post discharge needs including - *Post discharge parental anticoagulation - *Warfarin and/or parental anticoagulation education - *Follow up date to check INR post discharge At least 5 days overlap therapy as Inpatient No Meds if any: Prescribed or Continued at Discharge Note: Overlap Therapy is Warfarin and Anticoagulant Meds if any: NOT Prescribed or Continued at Discharge
--- NOTE | 2018-05-14 15:45 | Discharge Summary ---
Visit Information Visit Dates Admission Date: 05/12/18 Discharge Date: 05/15/18 Hospital Course Course Attending Physician: Adrienne Pearl MD Primary Care Physician: Henrry Castillo MD Hospital Course: Patient is a 57-year-old female with a PMH significant for hyperlipidemia, anxiety, diet-controlled diabetes mellitus type 2, EL on nocturnal CPAP although admits to noncompliance, who presents complaining of a rash on her left flank, fever, chills. She was started on Bactrim 2 days prior to presentation by urgent care and failed outpatient therapy, she was seen in the ED the morning of admission and was given a dose of Unasyn Augmentin added to her regimen, however she had severe fever and chills after being sent home from the ED and return to the ED. she has no history of being outside in a wooded area but has spent a significant amount of time outside in her garden, she does not recall any tick bites. Problem list #Lyme disease #Chronic medical problems including anxiety, diet-controlled DM, HLD Patient was started on Doxycycline for suspected lyme disease. Lyme antibody was positive which was confirmed with western blot pending at the time of discharge, showed early disseminated infection with B.Burgdoferi; patient had 3 IgM bands positive. Tick panel was negative for Babesia or Anaplasma. US for the area was also done to r/o any abscess. Patient was sent home on doxycycline for a total of 7 days. Her home medications including statin and paroxetine were continued. Allergies: Coded Allergies: NO KNOWN ALLERGIES (02/07/16) Significant Procedures: US-SUPERFICIAL IMAGING EXTREMI FINDINGS: The superficial soft tissues in the area of concern have a normal sonographic appearance. No soft tissue abscess or mass. IMPRESSION: No evidence of soft tissue abscess in the area of clinical concern. Disposition Summary Disposition Principal Diagnosis: Lyme Disease Additional Diagnosis: Chronic medical problems including anxiety, diet-controlled DM, HLD Discharge Disposition: home or self care Discharge Instructions General Discharge Information Code Status: Full Code Patient's Diet: Regular Patient's Activity: As tolerated Follow-Up Instructions/Appts: Please follow up with your PCP within a week after discharge. Medications at Discharge Discharge Medications: Stop taking the following medications: Sulfamethoxazole/Trimethoprim (Sulfamethoxazole-Tmp Ds Tablet) 800 MG-160 MG TABLET ORAL TWICE DAILY Qty = 20 Amoxicillin/Potassium Clav (Augmentin 875-125 Tablet) 875 MG-125 MG TABLET ORAL TWICE DAILY Qty = 20 Continue taking these medications: Pravastatin Sodium (Pravastatin Sodium) 20 MG TABLET 1 Tablet ORAL DAILY Qty = 90 Comments: Last Taken: 05/15/18 Time: 0830 AM Paroxetine HCl (Paroxetine HCl) 30 MG TABLET 1 Tablet ORAL DAILY Qty = 90 Comments: Last Taken: 05/15/18 Time: 0830 AM Start taking the following new medications: Doxycycline Hyclate (Doxycycline Hyclate) 100 MG TABLET 1 Tablet ORAL TWICE DAILY Qty = 10 No Refills Instructions: . Comments: IV GIVEN Last Taken: 05/15/18 Time: 0830 AM Copies To: Henrry Castillo MD Copies To: Henrry Castillo MD
[2018-05-14 20:58] VITALS: BP 120/67
[2018-05-15 05:06] VITALS: BP 126/84
--- NOTE | 2018-05-15 07:20 | PN- Housestaff ---
Yesenia IRENE,[facility] 05/15/18 0719: Subjective Follow-up For: Rash Subjective: Patient feeling better. Concerned about the rash not getting better after discharge and being readmitted to the hospital. Deneis any fever/chills. Review of Systems Constitutional: Reports: no symptoms. EENTM: Reports: no symptoms. Cardiovascular: Reports: no symptoms. Respiratory: Reports: no symptoms. Gastrointestinal: Reports: no symptoms. Genitourinary: Reports: no symptoms. Musculoskeletal: Reports: no symptoms. Skin: Reports: rash. Neurological/Psychological: Reports: no symptoms. Hematologic/Endocrine: Reports: no symptoms. Immunologic/Allergic: Reports: no symptoms. Objective Last 24 Hrs of Vital Signs/I&O Vital Signs Date Time Temp Pulse Resp B/P B/P Pulse O2 O2 Flow FiO2 Mean Ox Delivery Rate 05/15 0506 98.4 78 18 126/84 99 Room Air 05/14 2058 98.5 61 20 120/67 98 Room Air 05/14 1334 97.9 65 20 120/70 97 Room Air Intake & Output 05/15 1600 05/15 0800 05/15 0000 Intake Total 100 Output Total Balance 100 Intake, IV 100 Physical Exam General Appearance: Alert, Oriented X3, Cooperative, No Acute Distress Skin: No Breakdown, Rash on left flank, receding the marker line Cardiovascular: Regular Rate, Normal S1, Normal S2 Lungs: Clear to Auscultation, Normal Air Movement Abdomen: Normal Bowel Sounds, Soft, No Tenderness Extremities: No Clubbing, No Cyanosis, No Edema Current Medications: Current Medications Sig/Job Start time Last Medication Dose Route Stop Time Status Admin Doxycycline Hyclate 100 MG BID 05/14 2100 AC 05/15 Sodium Chloride 100 ML IV 0834 Doxycycline Hyclate 100 MG DAILY 05/13 0245 DC 05/14 Sodium Chloride 100 ML IV 0857 Enoxaparin Sodium 40 MG DAILY 05/13 1330 AC 05/13 SC 1448 Nicotine 14 MG DAILY 05/14 0900 AC TOP Paroxetine HCl 30 MG DAILY 05/13 1027 AC 05/15 PO 0833 Pravastatin Sodium 20 MG DAILY 05/13 0900 AC 05/15 PO 0834 Assessment/Plan Assessment: Patient is a 57-year-old female with a PMH significant for hyperlipidemia, anxiety, diet-controlled diabetes mellitus type 2, EL on nocturnal CPAP although admits to noncompliance, who presents complaining of a rash on her left flank, fever, chills. She was started on Bactrim 2 days prior to presentation by urgent care and failed outpatient therapy, she was seen in the ED the morning of admission and was given a dose of Unasyn Augmentin added to her regimen, however she had severe fever and chills after being sent home from the ED and return to the ED. she has no history of being outside in a wooded area but has spent a significant amount of time outside in her garden, she does not recall any tick bites. Problem list #Rash on left flank region; ?? lyme disease with superimposed cellulitis #Chronic medical problems including anxiety, diet-controlled DM, HLD Plan; Rash is getting better and patient does not experience any more fevers. - Lyme Ab positive, western blot pending. - Continue doxycycline, discharge on doxcy for 5 more days. - Tick panel pending - Follow-up peripheral smear - US negative for any abscess - Continue home medications including statin, paroxetine - Nicotine patch 14mg daily Diet: Diabetic diet DVT prophylaxis: Subcutaneous heparin, Alps CODE STATUS: Full code Problem List: 1. Cellulitis Pain Ratin Pain Location: NA Pain Goal: Remain pain free Pain Plan: NA Tomorrow's Labs & Rationales: None Adrienne Pearl MD 05/15/18 1215: Attending MD Review Statement Attending Statement Attending MD Statement: examined this patient, discuss w/resident/PA/AUDIT LEAD, agreed w/resident/PA/AUDIT LEAD, reviewed EMR data (avail), discussed with nursing, discussed with case mgmt, reviewed images Attending Assessment/Plan: Patient seen and examined, overall doing much better, with the rash looking improved. Patient remains afebrile. She can be switched to oral doxycycline and discharged home. Her Lyme Western blot and tickborne panel is still pending. We'll follow-up on the results and will call patient with the results. Continue other home medications and follow-up with primary care doctor as an outpatient.
[2018-05-15] MEDS ORDERED: DOXYCYCLINE HY100 M4 PO (10:28)
== END 2018-05-15 12:44 | DRG 868 ==
LOC: ERH 18:01 → 2NB 19:54 → ERHI 19:54 → CANRESERV 20:25 → ENRESERV 20:25 → ENTRNSPT 20:53 → 2NB 21:00 → EDTRNSPTSTS 21:09 → EDTRNSPT 21:09 → 2NB 21:21 → CMPTRNSPT 21:27 → 2NB 05-13 07:58 → ENPENDDIS 05-15 11:42 → 2NB 05-15 12:44
PROVIDERS: Internal Medicine; Physician Assistant Medical
DX: A69.20 Lyme disease, unspecified (principal); L03.312 Cellulitis of back [any part except buttock and flank]; I12.9 Hypertensive chronic kidney disease with stage 1 through stage 4 chronic kidney disease, or unspecified chronic kidney disease; N18.3 Chronic kidney disease, stage 3 (moderate); E78.5 Hyperlipidemia, unspecified; F41.9 Anxiety disorder, unspecified; E11.9 Type 2 diabetes mellitus without complications; G47.33 Obstructive sleep apnea (adult) (pediatric); Z91.19 Patient's noncompliance with other medical treatment and regimen; F41.0 Panic disorder [episodic paroxysmal anxiety]
CPT/HCPCS: 2NBP; 86317; 87798; 36592; 76881; 82436; 87040; 93005; 93010; 96361; 96365; 96375; J0131; J1650; J7040